=== PATIENT | male | born 1995 ===

== ENCOUNTER 2020-10-11 11:41 | Outpatient (REF) | payer OTHER, SELFPAY ==
[2020-10-11 13:43] LABS: Hematocrit 48.3 % (42-52); Hemoglobin 16.3 g/dl (14.0-18.0); Mean Corpuscular HGB Conc 33.7 g/dl (31.0-36.0); Mean Corpuscular Hemoglobin 29.6 pg (27.0-33.0); Mean Corpuscular Volume 87.8 fL (80-98); Mean Platelet Volume 11.3 fL (9.4-12.4); Platelet Count 276 X10*3/uL (160-400); White Blood Count 6.6 X10*3/uL (4.8-10.8)
[2020-10-11 14:14] LABS: Alanine Aminotransferase 19 U/L (0-40); Albumin Level 4.7 g/dL (3.5-5.0); Alkaline Phosphatase 65 U/L (39-117); Anion Gap 13 (12-20); Aspartate Amino Transferase 18 U/L (5-37); Bilirubin Direct 0.2 mg/dL (0.0-0.5); Bilirubin Total 0.5 mg/dL (0.0-1.0); Blood Urea Nitrogen 15 mg/dL (9-16); Calcium 9.5 mg/dL (8.4-10.2); Carbon Dioxide 27 mmol/L (22-29); Chloride 102 mmol/L (96-108); Cholesterol 203 mg/dL; Estimated Glomerular Filt Rate > 60; Glucose Fasting 97 mg/dL (60-99); HDL Cholesterol 31 mg/dL; LDL Cholesterol Calculated 133 mg/dl; Potassium 4.7 mmol/l (3.3-5.1); Sodium 137 mmol/L (135-145); Total Protein 7.5 g/dL (6.5-8.0); Triglycerides 197 mg/dL
[2020-10-11 14:35] LABS: TSH reflex Free T4 0.96 mIU/mL (0.32-4.0)
== END 2020-10-11 11:42 | disposition home or self-care (01) ==
LOC: HO.WFDLDS 11:41
PROVIDERS: Visit Provider Hospitalist
DX: Z00.00 Encounter for general adult medical examination without abnormal findings (principal)
CPT/HCPCS: 36415; 80048; 80061; 80076; 84443; 85027

== ENCOUNTER 2020-10-11 12:36 | Outpatient (REF) | payer OTHER, SELFPAY | END 2020-10-11 12:37 | disposition home or self-care (01) | LOC: HO.LAB 12:36 | PROVIDERS: Visit Provider Hospitalist | DX: Z00.00 Encounter for general adult medical examination without abnormal findings (principal); R82.90 Unspecified abnormal findings in urine | CPT/HCPCS: 87086 ==

== ENCOUNTER 2023-07-31 09:00 | Outpatient (AMB) | payer OTHER, SELFPAY ==
--- NOTE | 2023-07-31 09:02 | A.OFFPC_ITS ---
Vital Signs 07/31/23 09:06 Height 5 ft 6 in Weight 216 lb 6 oz BMI 34.9 BP 128/74 Blood Pressure Location Lt brachial Position Sitting Respiration 13 Pulse 80 Pulse Source Pulse Oximeter Temp 98.9 F Temp Source Oral Pulse Oximetry (%) 98 Oxygen Delivery Method Room Air Intake Visit Reasons: [facility], Acute pancreatitis, 07/25-07/26 Intake Note: Patient was seen at [facility] 07/25-07/26. Patient reports the hospital informed him he has pancreatitis and high cholesterol. The ER gave him a medication for the high cholesterol. Patient reports he has excessive sweating and a rash on his face as well and is unsure if either of these things correlate. 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 He presented to [facility] ED with generalized abdominal pain on 07/25/2023. He noted that the pain was intermittent for the past few months. He denied alcohol consumption. CBC, CMP, lipase, UA, and CT abdomen/pelvis where ordered. WBC and lipase were elevated. Total cholesterol and triglycerides were elevated, 251 and 864 respectively. HDL was low, 21. LDL was not calculated due to significantly elevated triglycerides. CT scan revealed acute diffuse interstitial pancreatitis with small peripancreatic free fluid but no organized collection. Urinalysis was normal. A1c was 5.3%. He was diagnosed with acute pancreatitis which was deemed likely due to elevated triglycerides. He was admitted. His pain improved with IV fluids and pain medication. He was discharged the following day on 07/26/2023. He was sent home on Lipitor 20 mg daily. He states that he has not experienced abdominal pain since he was discharged from the hospital. He admits to taking Lipitor as prescribed every night. He notes that he drinks alcohol occasionally and that he did not drink for 3 months before his recent hospitalization. [facility] Medical History (Updated 07/31/23 @ 09:49 by Loy Michel CNP) HBP (high blood pressure) Family History (Updated 10/11/20 @ 11:49 by Amirah Ruiz CMA) Mother Type 1 diabetes Social History Housing: Apartment Patient Tobacco Use Status: Never used Tobacco e-Cigarette/Vaping Use: Never Used service: No Current occupational status: employed Current occupation: [employer] Current occupational exposures/hazards: No Cognitive needs: No Hearing needs: No Vision needs: Yes (vision is intermittently blurry) Questionnaire AUDIT C Alcohol Use Questionnaire (AUDIT-C) 1. How often do you have a drink containing alcohol?: Monthly or less 2. How many drinks containing alcohol do you have on a typical day when you are drinking?: 5 or 6 3. How often do you have six or more drinks on one occasion?: Less than monthly Total Score: 4 Review of Systems Const Details: Const Denies chills, Denies fatigue, Denies fever(s), Denies headache(s) and Denies weakness ENT Denies dizziness and Denies headache(s) Card Denies chest pain, Denies lightheadedness, Denies dyspnea and Denies other (Palpitations) Resp Denies cough, Denies dyspnea, Denies wheezing and Denies other ( shortness of breath) GI Denies abdominal pain, Denies melena, Denies hematochezia, Denies change in bowel habits, Denies dyspepsia and Denies nausea Denies hematuria and Denies dysuria Musc Denies abnormal gait, Denies myalgias, Denies arthralgias, Denies numbness and Denies tingling Skin/Breast Denies rash, Denies unusual bruising and Denies wounds Neuro Denies abnormal gait, Denies dizziness, Denies headache(s), Denies memory loss, Denies numbness, Denies Sensory deficit (Neuro), Denies tingling and Denies weakness Psych Denies anxiety, Denies depression, Denies memory loss Endo Denies cold intolerance, Denies fatigue, Denies heat intolerance, Denies polydipsia and Denies polyuria Aller/Immun Denies wheezing Physical exam (Primary Care) Vital Signs: Last Vital Signs Temp 98.9 F 11/07/23 09:06 Pulse 80 07/31/23 09:06 Resp 13 07/31/23 09:06 BP 128/74 07/31/23 09:06 Pulse Ox 98 07/31/23 09:06 Oxygen Delivery Method Room Air 07/31/23 09:06 BMI result Body Mass Index 34.9 Tobacco/Smoking Status: Tobacco use Status Tobacco use date assessed 07/31/23 07/31/23 09:13 Patient Tobacco Use Status Never used Tobacco 07/31/23 09:13 e-Cigarette/Vaping Use Never Used 07/31/23 09:13 Const Other: General: no acute distress and well developed Nutritional Appearance: well nourished Orientation/consciousness: patient oriented x3 HENMT Head: Yes normocephalic and Yes atraumatic Eyes General: appearance normal, both eyes and all related structures Pupils: Equal, round and reactive pupils present EOM: EOMs intact bilaterally Resp Effort & Inspection: normal respiratory effort Auscultation: clear to auscultation bilaterally Cardio Rate: regular rate Rhythm: regular rhythm Heart sounds: S1 normal heart sound present, S2 normal heart sound present, no gallops, no murmurs and no rubs GI Palpation (GI): No Abdominal aortic bruit present, Soft to palpation, nontender, No hepatosplenomegaly present and No Rebound tenderness present Auscultation: normal bowel sounds General: Yes no CVA tenderness Back/Spine/Pelvis Back: no CVA tenderness Cervical Spine: cervical ROM normal and No Cervical spine tenderness Thoracic/Lumbar Spine: thoraco-lumbar ROM normal, No pain with thoraco-lumbar ROM, No thoracic spinal tenderness and No lumbar spinal tenderness Extrem General: Yes normal to inspection, No edema and No calf tenderness Skin General: warm and dry. Normal skin color. Normal skin turgor Lesions: no lesions Rashes: no rashes Trauma: no lacerations or abrasions Wounds: no wounds Nails: normal Neuro General: patient oriented x3, gait normal and no focal neuro deficit Cranial nerves: Yes Equal, round and reactive pupils present Cognition (Neuro): normal cognition Gait exam (Neuro): Normal gait present Sensory Exam: No Sensory deficit (Neuro) Psych Appearance: grossly normal Affect: normal affect Attitude: cooperative Thought process: Normal thought process present Assessment and Plan Assessment & Plan (1) Acute pancreatitis: Code(s): K85.90 - Acute pancreatitis without necrosis or infection, unspecified Qualifiers: Pancreatitis type: other Plan: Stable No acute symptoms at this time (2) Hyperlipidemia: Code(s): E78.5 - Hyperlipidemia, unspecified Qualifiers: Hyperlipidemia type: mixed hyperlipidemia Qualified Code(s): E78.2 - Mixed hyperlipidemia Plan: Total cholesterol and triglycerides were elevated, 251 and 864 respectively. HDL was low, 21. LDL was not calculated due to significantly elevated triglycerides. Continue to take Lipitor as prescribed Advised to limit foods high in saturated fat and avoid foods high trans fat Routine exercise encouraged Will repeat lipid panel in 6 weeks. Will also check direct LDL. Advised to fast for 10-12 hours (may drink water) and get blood work done 2-3 days before his next visit. Follow-up in 6 weeks or return sooner with symptoms or concerns Verbalized understanding and agreed with treatment plan. (3) Obesity (BMI 30.0-34.9): Code(s): E66.9 - Obesity, unspecified Plan: He weighs 216 lb, BMI is 34.9 Healthy diet and routine exercise encouraged Follow-up with symptoms or concerns. Will refer to automotive glazier/dietitian or weight management Verbalized understanding and agreed with the plan. Orders: Orders LDL Cholesterol Direct Today E78.5 - Hyperlipidemia, unspecified Lipid Panel Today E78.5 - Hyperlipidemia, unspecified Coding Level of Care Code Est Pt Level 4 (86010) Diagnoses Acute pancreatitis K85.90 Pancreatitis type: other Mixed hyperlipidemia E78.2 Hyperlipidemia type: mixed hyperlipidemia Obesity (BMI 30.0-34.9) E66.9
[2023-07-31 09:06] VITALS: BP 128/74; PULSE 80; RESP 13; TEMP 37.2; O2SAT 98; BMI 34.9
== END 2023-07-31 09:39 | disposition home or self-care (01) ==
PROVIDERS: PCP Hospitalist; Visit Provider Nurse Practitioner Family
DX: K85.90 Acute pancreatitis without necrosis or infection, unspecified (principal); E78.2 Mixed hyperlipidemia; E66.9 Obesity, unspecified; Z68.34 Body mass index [BMI] 34.0-34.9, adult
CPT/HCPCS: 99214

== ENCOUNTER 2023-09-12 10:02 | Outpatient (AMB) | payer OTHER, SELFPAY ==
[2023-09-12 10:15] VITALS: BP 118/78; PULSE 67; RESP 13; TEMP 36.4; O2SAT 97; BMI 33.8
--- NOTE | 2023-09-12 10:15 | A.OFFPC_ITS ---
Vital Signs 09/12/23 10:15 Height 5 ft 6 in Weight 209 lb 8 oz BMI 33.8 BP 118/78 Blood Pressure Location Rt brachial Position Sitting Respiration 13 Pulse 67 Pulse Source Pulse Oximeter Temp 97.6 F Temp Source Temporal Artery Scan Pulse Oximetry (%) 97 Oxygen Delivery Method Room Air Intake Visit Reasons: 6 wks HDL+NEEDS PHQ9/THRIVE Intake Note: Patient would like note for work. 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 Accompanied by: Self / Same As Patient Allergies No Known Allergies Allergy (Verified 09/12/23 10:39) Tobacco use date assessed: 07/31/23 Dental Screening Dental Screen Date: 09/12/23 Did you have a dental visit in the last 12 months?: Yes Did you have a dental problem in the last 6 months where you did not have access to dental care?: No Was dental information given to patient?: Patient has dentist HPI HPI Comments History of Present Illness Details 28-year-old male presents for hyperlipid emia follow-up He was treated for acute pancreatitis related to elevated cholesterol and triglycerides level early last month He was prescribed atorvastatin. He notes that he took the full 1 month prescription but did not request a refill. He notes he was informed by his relatives regarding several adverse reactions of atorvastatin. He has been making healthy dietary changes, including avoiding alcohol He has not gotten his fasting blood work done but plans on doing so today He offers no complaints and denies acute symptoms at this time [facility] Medical History HBP (high blood pressure) Surgical History No pertinent past surgical history Family History Mother Type 1 diabetes Social History Housing: Apartment Patient Tobacco Use Status: Never used Tobacco e-Cigarette/Vaping Use: Never Used service: No Current occupational status: employed Current occupation: [employer] Current occupational exposures/hazards: No Cognitive needs: No Hearing needs: No Vision needs: Yes (vision is intermittently blurry) Questionnaire PHQ-9 Over the last 2 weeks, how often have you been bothered by any of the following problems? 1. Little interest or pleasure in doing things: not at all 2. Feeling down, depressed, or hopeless: not at all 3. Trouble falling or staying asleep, or sleeping too much: not at all 4. Feeling tired or having little energy: several days 5. Poor appetite or overeating: several days 6. Feeling bad about yourself - or that you are a failure or have let yourself or your family down: not at all 7. Trouble concentrating on things, such as reading the newspaper or watching television: not at all 8. Moving or speaking so slowly that other people could have noticed. Or the opposite - being so fidgety or restless that you have been moving around a lot more than usual: not at all 9. Thoughts that you would be better off or of hurting yourself in some way: not at all Total score: 2 Depression Screening Interpretation: Negative Depression Screening Done: Yes 86355 - PHQ-9 Billing: Yes Source: Developed by Drs. Adi Duke, Jayce Saavedra and colleagues, with an educational robert from [employer]. KIM-7 AMB Questionnaire KIM-7 Feeling nervous, anxious, or on edge: 0 = Not at all Not being able to stop or control worryin = Not at all Worrying too much about different things: 0 = Not at all Trouble relaxin = Not at all Being so restless that it is hard to sit still: 0 = Not at all Becoming easily annoyed or irritable: 0 = Not at all Feeling afraid as if something awful might happen: 0 = Not at all Total KIM-7 score (0-4 normal; 5-9 mild; 10-14 moderate; 15-21 severe): 0 Source: Developed by Drs. Adi Duke, Jayce Saavedra and colleagues, with an educational robert from [employer]. KIM-7 Assessment Billing KIM-7 Assessment Tool: KIM-7 Assessment 51425 Review of Systems Const Details: Const Denies chills, Denies fatigue, Denies fever(s), Denies headache(s) and Denies weakness ENT Denies dizziness and Denies headache(s) Card Denies chest pain, Denies lightheadedness, Denies dyspnea and Denies other (Palpitations) Resp Denies cough, Denies dyspnea, Denies wheezing and Denies other ( shortness of breath) GI Denies abdominal pain, Denies melena, Denies hematochezia, Denies change in bowel habits, Denies dyspepsia and Denies nausea Denies hematuria and Denies dysuria Musc Denies abnormal gait, Denies myalgias, Denies arthralgias, Denies numbness and Denies tingling Skin/Breast Denies rash, Denies unusual bruising and Denies wounds Neuro Denies abnormal gait, Denies dizziness, Denies headache(s), Denies memory loss, Denies numbness, Denies Sensory deficit (Neuro), Denies tingling and Denies weakness Psych Denies anxiety, Denies depression, Denies memory loss Endo Denies cold intolerance, Denies fatigue, Denies heat intolerance, Denies polydipsia and Denies polyuria Aller/Immun Denies wheezing Physical exam (Primary Care) Vital Signs: Last Vital Signs Temp 97.6 F 09/12/23 10:15 Pulse 67 09/12/23 10:15 Resp 13 09/12/23 10:15 BP 118/78 09/12/23 10:15 Pulse Ox 97 09/12/23 10:15 Oxygen Delivery Method Room Air 09/12/23 10:15 BMI result Body Mass Index 33.8 Tobacco/Smoking Status: Tobacco use Status Tobacco use date assessed 07/31/23 09/12/23 10:23 Patient Tobacco Use Status Never used Tobacco 09/12/23 10:23 e-Cigarette/Vaping Use Never Used 09/12/23 10:23 PHQ-9: PHQ-9 Score PHQ-9: Total score 2 09/12/23 10:23 Depression Screening Interpretation: Negative Const Other: General: no acute distress and well developed Nutritional Appearance: well nourished Orientation/consciousness: patient oriented x3 HENMT Head: Yes normocephalic and Yes atraumatic Eyes General: appearance normal, both eyes and all related structures Pupils: Equal, round and reactive pupils present EOM: EOMs intact bilaterally Resp Effort & Inspection: normal respiratory effort Auscultation: clear to auscultation bilaterally Cardio Rate: regular rate Rhythm: regular rhythm Heart sounds: S1 normal heart sound present, S2 normal heart sound present, no gallops, no murmurs and no rubs GI Palpation (GI): No Abdominal aortic bruit present, Soft to palpation, nontender, No hepatosplenomegaly present and No Rebound tenderness present Auscultation: normal bowel sounds General: Yes no CVA tenderness Back/Spine/Pelvis Back: no CVA tenderness Cervical Spine: cervical ROM normal and No Cervical spine tenderness Thoracic/Lumbar Spine: thoraco-lumbar ROM normal, No pain with thoraco-lumbar ROM, No thoracic spinal tenderness and No lumbar spinal tenderness Extrem General: Yes normal to inspection, No edema and No calf tenderness Skin General: warm and dry. Normal skin color. Normal skin turgor Neuro General: patient oriented x3, gait normal and no focal neuro deficit Cranial nerves: Yes Equal, round and reactive pupils present Cognition (Neuro): normal cognition Gait exam (Neuro): Normal gait present Sensory Exam: No Sensory deficit (Neuro) Psych Appearance: grossly normal Affect: normal affect Attitude: cooperative Thought process: Normal thought process present Assessment and Plan Assessment & Plan (1) Hyperlipidemia: Code(s): E78.5 - Hyperlipidemia, unspecified Qualifiers: Hyperlipidemia type: mixed hyperlipidemia Qualified Code(s): E78.2 - Mixed hyperlipidemia Plan: Previous total cholesterol and triglycerides were elevated, 251 and 864 respecti vely. HDL was low, 21. LDL was not calculated due to significantly elevated triglycerides He took atorvastatin for 1 month. He does not want a refill at this time He has been making healthy dietary choices He has not gotten his repeat lipid panel blood work done. He plans on doing so today Advised to get blood work done. Will contact patient regarding results and treatment plan Encouraged to limit foods high in saturated fat and avoid foods high trans fat Routine exercise encouraged Follow-up with symptoms or concerns Verbalized understanding and agreed with treatment plan Coding Level of Care Code Est Pt Level 3 (28072) Diagnoses Mixed hyperlipidemia E78.2 Hyperlipidemia type: mixed hyperlipidemia Additional Codes KIM-7 Assessment Billing - KIM-7 Assessment Tool: KIM-7 Assessment [id number] ([id number])
== END 2023-09-12 10:57 | disposition home or self-care (01) ==
PROVIDERS: PCP Hospitalist; Visit Provider Nurse Practitioner Family
DX: E78.2 Mixed hyperlipidemia (principal)
CPT/HCPCS: 99213

== ENCOUNTER 2023-09-12 10:50 | Outpatient (REF) | payer OTHER, SELFPAY ==
[2023-09-12 13:42] LABS: Cholesterol 185 mg/dL (<200); HDL Cholesterol 28 mg/dL (>40); LDL Cholesterol Calculated 104 mg/dL (<100); Triglycerides 267 mg/dL (<150)
[2023-09-14 01:39] LABS: LDL Cholesterol Direct 109 mg/dL (<100)
== END 2023-09-12 10:51 | disposition home or self-care (01) ==
LOC: HO.WFDLDS 10:50
PROVIDERS: Visit Provider Nurse Practitioner Family
DX: E78.5 Hyperlipidemia, unspecified (principal)
CPT/HCPCS: 36415; 80061; 83721